=== PATIENT | female | born 1970 | race Caucasian/White ===

== ENCOUNTER 2018-01-12 18:51 | Emergency (ER) | payer OTHER ==
[~2018-01-12] VITALS: Ht 162.6 cm; Wt 98.0 kg
[2018-01-12 18:59] VITALS: BP 142/76; PULSE 87; RESP 18; TEMP 98.1; O2SAT 97
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
[2018-01-12] MEDS ORDERED: IBUPROFEN 600 MG TAB PO ONE (20:00)
== END 2018-01-12 20:02 | disposition home or self-care (01) ==
LOC: PHEFT 18:51
DX: S46.912A Strain of unspecified muscle, fascia and tendon at shoulder and upper arm level, left arm, initial encounter (principal); V59.40XA Driver of pick-up truck or van injured in collision with unspecified motor vehicles in traffic accident, initial encounter; Y92.411 Interstate highway as the place of occurrence of the external cause
CPT/HCPCS: 99282